=== PATIENT | female | born 2005 | race Two or more races ===

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

== ENCOUNTER 2024-09-14 19:07 | Inpatient (IN) | payer MEDICAID ==
[~2024-09-14] VITALS: Ht 165.1 cm; Wt 67.0 kg
[~2024-09-14 19:07] MED LIST changes: +IBU600T PO; +NAPR-746 PO; -NAPR500T31 PO
--- NOTE | 2024-09-14 19:36 | ED.PDOC ---
GI ASSESSMENT HPI Comments 19 y.o female presents to the ED for a chief complaint of abdominal pain associated with nausea and vomiting that started 4 days ago. Patient reports pain first presented all over her abdomen region but now is localized to the right side. Patient reports pain is constant, has taken Tylenol but has no relief. Patient has same symptoms one month ago but never sought medical attention due to pain subsiding on its own. No diarrhea, hematemesis, bloody stool, fever, chills or urinary symptoms reported. No medical history or allergies. Time Seen by MD: 19:28 Primary Care Provider: SHIN Reviewed Notes: Nurses Notes, Medications, Allergies Allergies: Coded Allergies: NO KNOWN ALLERGIES (Unverified , 07/03/22) Home Meds Active Scripts Ibuprofen Micronized (MOTRIN TABLET) 600 Mg Tb, 600 MG PO TID PRN for 7 Days, #21 TAB *Black box warning-NSAIDS can increase risk of IL & hypertension, GI irritation, ulceration, bleed, perferation. Do not use post cardiac surgery. Use short duration/lowest effective dose. Prov:NANCI FRANCIS MD 07/13/22 Naproxen (Naproxen) 500 Mg Tab, 500 MG PO BID, #20 TAB Prov:MATT WAGNER 07/03/22 Cephalexin ( Keflex 500) 500 Mg Cap, 1 CAP PO TID, #24 CAP Prov:MATT WAGNER 07/03/22 Information Source: Patient Mode of Arrival: Ambulatory Timing: Days (4) Duration: Since onset Quality: Sharp Vomitus: Hard Stool: Normal Severity: Moderate Recent: None Recent Hx of: None Pain Location: Diffuse, RUQ, RLQ Modifying Factors: Nothing Associated sign and symptoms: Nausea, Vomiting, Abdominal Pain Past Medical History PAST MEDICAL HISTORY: Denies Surgical History: Denies all surgeries PARKER History: No Pertinent PARKER History Family History Family History: Reviewed,noncontributory to illness Social History Smoker: Non-Smoker Alcohol: Denies ETOH Use Drugs: Denies Drug Use Lives In: Home Constitutional: denies: chills, diaphoresis, fatigue, fever, malaise, sweats, weakness, others EENTM: denies: blurred vision, double vision, ear bleeding, ear discharge, ear drainage, ear pain, ear ringing, eye pain, eye redness, hearing loss, mouth pain, mouth swelling, nasal discharge, nose bleeding, nose congestion, nose pain, photophobia, tearing, throat pain, throat swelling, voice changes, others Respiratory: denies: cough, hemoptysis, orthopnea, SOB at rest, shortness of breath, SOB with excertion, stridor, wheezing, others Cardiovascular: denies: chest pain, dizzy spells, diaphoresis, Dyspnea on exertion, edema, irregular heart beat, left arm pain, lightheadedness, palpitations, PND, syncope, others Gastrointestinal: reports: abdominal pain, nausea, vomiting; denies: abdomen distended, blood streaked bowels, constipated, diarrhea, dysphagia, difficulty swallowing, hematemesis, melena, poor appetite, poor fluid intake, rectal bleeding, rectal pain, others Genitourinary: denies: abnormal vagina bleeding, burning, dyspareunia, dysuria, flank pain, frequency, hematuria, incontinence, pain, , vagina discharge, urgency, others Neurological: denies: dizziness, fainting, headache, left sided numbness, left sided weakness, numbness, paresthesia, pre-existing deficit, right sided numbness, right sided weakness, seizure, speech problems, tingling, tremors, weakness, others Musculoskeletal: denies: back pain, gout, joint pain, joint swelling, muscle pain, muscle stiffness, neck pain, others Integumetry: denies: bruises, change in color, change in hair/nails, dryness, laceration, lesions, lumps, rash, wounds, others Allergic/Immunocompromised: denies: Difficulty Healing, Frequent Infections, Hives, Itching, others Hematologic/Lymphatic: denies: anemia, blood clots, easy bleeding, easy bruising, swollen glands, others Endocrine: denies: excessive hunger, excessive sweating, excessive thirst, excessive urination, flushing, intolerance to cold, intolerance to heat, unexplained weight gain, unexplained weight loss, others Psychiatric: denies: anxiety, bipolar disorder, depression, hopeless, panic disorder, schizophrenia, sleepless, suicidal, others All Other Systems: Reviewed and Negative Physical Exam General Appearance: Moderate Distress, Obese HEENT: Normal ENT Inspection, Pharynx Normal, TMs Normal Neck: Full Range of Motion, Non-Tender, Normal, Normal Inspection Respiratory: Chest Non-Tender, Lungs Clear, No Accessory Muscle Use, No Respiratory Distress, Normal Breath Sounds Cardiovascular: No Edema, No JVD, No Murmur, No Gallop, Normal Peripheral Pulses, Regular Rate/Rhythm Breast Exam: Deferred Gastrointestinal: No Organomegaly, No Pulsatile Mass, Normal Bowel Sounds, RLQ, RUQ, Soft, Tenderness Genitalia: Deferred Pelvic: Deferred Rectal: Deferred Extremities: No calf tenderness, Normal capillary refill, Normal inspection, Normal range of motion, Non-tender, No pedal edema Musculoskeletal : Apperance: Normal Neurologic: Alert, 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 Was a procedure done?: No GI differential Dx Differential Diagnosis: Cholangitis, Cholecystitis, Esophagitis, Gastroenteritis, Inflammatory BD, UTI, Dehydration, Electrolyte Imbalance, Food Poisoning, , Bacterial, Viral X-Ray, Labs, Meds, VS Vital Signs Date Time Temp Pulse Resp B/P (MAP) Pulse Ox O2 Delivery O2 Flow Rate FiO2 09/14/24 20:29 89 16 130/88 09/14/24 20:14 98.3 89 16 130/88 (102) 98 98.3 09/14/24 19:36 98.5 100 18 141/89 (106) 97 Lab Test 09/14/24 19:57 09/14/24 19:51 09/14/24 19:36 Range/Units Urine Color Light-yellow Yellow Urine Clarity Clear Clear Urine pH 6.0 5.0-9.0 Urine Specific [place] 1.026 1.001-1.035 Urine Protein Negative Negative Urine Ketones 1+ H Negative Urine Blood 1+ H Negative /uL Urine Nitrite Negative Negative Urine Bilirubin Negative Negative Urine Urobilinogen Normal Negative mg/dL Urine Leukocyte Esterase Negative Negative /uL Urine RBC 26 0 - 4 /hpf Urine WBC 2 0 - 5 /hpf Urine Squamous Epithelial Cells Few <5 /hpf Urine Bacteria Few H None Seen /hpf Urine Mucus Few None Seen Urine Glucose Normal Normal mg/dL White Blood Count 15.7 H 4.4-10.8 10^3/uL Red Blood Count 4.67 4.0-5.20 10^6/uL Hemoglobin 14.3 12.2-16.2 g/dL Hematocrit 41.0 36.0-46.0 % Mean Corpuscular Volume 87.8 80.0-100.0 fL Mean Corpuscular Hemoglobin 30.6 28.0-32.0 pg Mean Corpuscular Hemoglobin Concent 34.9 32.0-36.0 g/dL Red Cell Distribution Width 13.0 11.8-14.3 % Platelet Count 448 140-450 10^3/uL Mean Platelet Volume 6.6 L 6.9-10.8 fL Neutrophils (%) (Auto) 81.5 H 37.0-80.0 % Lymphocytes (%) (Auto) 9.4 L 10.0-50.0 % Monocytes (%) (Auto) 7.7 0.0-12.0 % Eosinophils (%) (Auto) 1.0 0.0-7.0 % Basophils (%) (Auto) 0.4 0.0-2.0 % Neutrophils # (Auto) 12.8 H 1.6-8.6 10 ^3/uL Lymphocytes # (Auto) 1.5 0.4-5.4 10 ^3/uL Monocytes # (Auto) 1.2 0-1.3 10 ^3/uL Eosinophils # (Auto) 0.2 0-0.8 10 ^3/uL Basophils # (Auto) 0.1 0-0.2 10 ^3/uL Nucleated Red Blood Cells 0.0 % Sodium Level 140 136-145 mmol/L Potassium Level 3.4 L 3.5-5.1 mmol/L Chloride Level 108 H 98-107 mmol/L Carbon Dioxide Level 24 20-31 mmol/L Anion Gap 8 5-15 Blood Urea Nitrogen 8 L 9-23 mg/dL Creatinine 0.97 0.550-1.02 mg/dL Glomerular Filtration Rate Calc 86 >90 mL/min BUN/Creatinine Ratio 8.2 L 10.0-20.0 Serum Glucose 104 74-106 mg/dL Calcium Level 9.9 8.7-10.4 mg/dL Total Bilirubin 0.7 0.2-1.0 mg/dL Aspartate Amino Transferase (AST) 15 13-40 U/L Alanine Aminotransferase (ALT) 19 7-40 U/L Alkaline Phosphatase 85 46-116 U/L Total Protein 7.5 5.7-8.2 g/dL Albumin 4.8 3.2-4.8 g/dL Lipase 40 12-53 U/L POC Glucose 95 70-106 mg/dl Current Medications Medications (Trade) Dose Ordered Sig/Rodrigo Route Start Time Stop Time Status Last Admin Morphine Sulfate 4 mg ONCE ONCE IV 09/14/24 19:45 09/14/24 19:46 DC 09/14/24 20:29 Pantoprazole Sodium (Protonix) 40 mg ONCE ONCE IV 09/14/24 19:45 09/14/24 19:46 DC 09/14/24 20:28 Ondansetron HCl (Zofran) 4 mg ONCE ONCE IV 09/14/24 19:45 09/14/24 19:46 DC 09/14/24 20:28 The patient's CBC shows an elevated white blood cell count of 15.7 The rest of the CBC is within normal limits The chemistry panel is within normal limits The patient was given Protonix 40 mg IV push The patient was given morphine 4 mg IV push for the pain The patient was given Zofran 4 mg IV push for the nausea The ultrasound of the gallbladder is negative We did go ahead and get a CT scan of the abdomen and pelvis because of the persistent pain in the elevated white count The patient was being admitted at this time. Images Reviewed?: Images reviewed and evaluated by me Time of 1ST Reevaluation: 19:33 Reevaluation 1ST: Unchanged Patient Education/Counseling: Diagnosis, Treatment, Prognosis Family Education/Counseling: No Family Present Departure 1 Departure Time of Disposition: 20:51 Impression: Primary Impression: Intractable abdominal pain Additional Impression: Leukocytosis Qualified Codes: D72.829 - Elevated white blood cell count, unspecified Disposition: ADMITTED INPATIENT Admit to: Med Surg Condition: Fair Critical Care Note Critical Care Time?: No Stability Stability form required: Yes Unstable for transfer: ED Physician Assesment (Clinical assesment) I personally scribed for BIBI PARK MD ([email or web address]) on 09/14/24 at 19:36. Electronically submitted by Dominique Pollack ([facility]). BIBI PARK MD Sep 14, 2024 19:36
[2024-09-14 20:01] LABS: Basophils # (auto) 0.1 10 ^3/uL (0-0.2); Basophils % (auto) 0.4 % (0.0-2.0); Eosinophils # (auto) 0.2 10 ^3/uL (0-0.8); Hemoglobin 14.3 g/dL (12.2-16.2); Lymphocytes # (auto) 1.5 10 ^3/uL (0.4-5.4); Lymphocytes % (auto) 9.4 % (10.0-50.0); Mean Corpuscular Hemoglobin 30.6 pg (28.0-32.0); Mean Corpuscular Hgb Conc. 34.9 g/dL (32.0-36.0); Mean Corpuscular Volume 87.8 fL (80.0-100.0); Monocytes # (auto) 1.2 10 ^3/uL (0-1.3); Monocytes % (auto) 7.7 % (0.0-12.0); Neutrophils # (auto) 12.8 10 ^3/uL (1.6-8.6); Neutrophils % (auto) 81.5 % (37.0-80.0); Platelet Count (auto) 448 10^3/uL (140-450); Red Blood Cells 4.67 10^6/uL (4.0-5.20); White Blood Cell 15.7 10^3/uL (4.4-10.8)
[2024-09-14 20:03] LABS: Urine Bacteria FEW /hpf (None Seen); Urine Blood 1+ /uL (Negative); Urine Clarity Clear (Clear); Urine Color Light-Yellow (Yellow); Urine Mucus FEW (None Seen); Urine Protein, UAD Negative (Negative); Urine Specific Gravity 1.026 (1.001-1.035); Urine Urobilinogen Normal (Negative); Urine WBC 2 /hpf (0 - 5)
[2024-09-14 20:19] LABS: Alanine Aminotransferase 19 U/L (7-40); Albumin 4.8 g/dL (3.2-4.8); Alkaline Phosphatase 85 U/L (46-116); Anion Gap 8 (5-15); Aspartate Aminotransferase 15 U/L (13-40); BUN/Creatinine Ratio 8.2 (10.0-20.0); Blood Urea Nitrogen 8 mg/dL (9-23); Calcium 9.9 mg/dL (8.7-10.4); Carbon Dioxide 24 mmol/L (20-31); Chloride 108 mmol/L (98-107); Glucose 104 mg/dL (74-106); Lipase 40 U/L (12-53); Potassium 3.4 mmol/L (3.5-5.1); Sodium 140 mmol/L (136-145)
[2024-09-14 20:20] LABS: Bilirubin, Total 0.7 mg/dL (0.2-1.0); Total Protein 7.5 g/dL (5.7-8.2)
--- NOTE | 2024-09-14 20:24 | DVH ---
INDICATION: Pain. TECHNIQUE: Multiple real-time sonographic images of the abdomen were obtained. COMPARISON: None FINDINGS: The liver is homogenous in echogenicity. The liver measures 15.06 cm. No intrahepatic bili mercedes ductal dilatation is noted. The gallbladder wall measures 0.34 cm and is minimally thickened.. No gallstones or sludge is seen. The common duct measures 0.2 cm and is unremarkable. No pericholecystic fluid is noted. The right kidney measures 10.69 cm. Mild hydronephrosis. The left kidney measures 10.46 cm. No hydr onephrosis. The pancreas is normal. IMPRESSION: 1. No cholelithiasis. Negative ultrasound camejo's sign is elicited. 2. Mild right hydronephrosis.
[2024-09-14] MEDS: PANTOPRAZOLE 40 MG/10 ML VIAL INJ IV ONE (20:28)
[2024-09-14] MEDS: ONDANSETRON HCL 4 MG/2 ML VIAL IV ONE (20:28)
[2024-09-14] MEDS: MORPHINE SULFATE 4 MG/ML SYR/VIAL IV ONE (20:29)
--- NOTE | 2024-09-14 21:13 | DVH ---
Exam: CT CT AB PEL WO CON-NO ORAL OR IV History: pain Comparison Study: None available at time of dictation. TECHNIQUE: Multidetector CT of the abdomen was performed from lung bases to pubic symphysis. Imaging was performed without IV contrast. Axial, coronal and sagittal multiplanar reformats were obtained fr om the axial data set by the technologist. Radiation Dose Information: CT Dose: CTDI volume is 5.38 mGy. Dose-length product is 315.41 mGy*cm FINDINGS: Evaluation of solid organs is limited due to lack of intravenous contrast use. Findings: Lung Bases: No acute or significant lung base finding. Normal heart size. No pleural or pericardial effusion. Liver: The liver is normal in size. No focal lesions. Gallbladder and Biliary Tree: Unremarkable Spleen: Unremarkable Pancreas: The pancreas is grossly normal in appearance. Adrenal Glands: Unremarkable Kidneys: Punctate nonobstructing calculus left kidney. Mild right hydronephrosis hydroureter there is a 5-6 mm calculus in the distal right ureter. Bladder: Grossly unremarkable for degree of distention. Bowel: The stomach is grossly normal in appearance. Small bowel and colon are normal in caliber and d istribution. The appendix is not visualized; however, no secondary findings of acute appendicitis id entified. Ascites: Absent Lymphadenopathy: No mesenteric, retroperitoneal or periportal lymphadenopathy. Abdominal Wall and Mesentery: Unremarkable. Vasculature: The visualized abdominal aorta is normal in size and caliber. Evaluation of abdominal a nd pelvic vessels is limited due to lack of intravenous contrast. Pelvic Organs: There is a 3.1 cm hypodense mass in the right adnexa most likely the right ovary. Musculoskeletal: No aggressive focal bony lesions, acute fractures or dislocation. Soft tissues: Unremarkable IMPRESSION: 1. Mild right hydronephrosis and hydroureter to a 5-6 mm distal right ureteral calculus near the righ t ureterovesical junction. 2. Punctate nonobstructing calculus left kidney. 3. 3.1 hypodense mass in the right adnexa most likely the right ovary. Radiation optimization: All CT scans at this facility use at least one of these dose optimization kandy hniques: automated exposure control mA and/or kV adjustment per patient size (includes targeted exam s where dose is matched to clinical indication) or iterative reconstruction.
[2024-09-14] MEDS ORDERED: NITROGLYCERIN 0.4 MG SL TAB SL PRN (21:15)
[2024-09-14] MEDS ORDERED: MORPHINE SULFATE INJ 2 MG/ml SYRG IV PRN (21:15)
--- NOTE | 2024-09-14 21:57 | DVHHPRES ---
History of Present Illness Resident Creating Document: VISHNU PUENTE RESIDENT History of Present Illness This is a 19 yrs old female with no significant past medical history presented to the ED for a chief complaint of abdominal pain associated with nausea and vomiting for 4 days prior to this admission. According to the patient she first felt pain in both ribcage and later it was confined to the right lower abdomen which is colicky in nature, constant 10/10 and associated with nausea and vomiting and without any aggravating factors and not relieved by taking Tylenol. She also mentioned has same symptoms 1 month ago but never sought any medical attention due to pain subsiding by its own. She denies fever, chest pain, dizziness, chills, malaise, dysuria, blood in urine or any changes in the bowel movement. Past Medical History None Past Surgical History None Family History: None Smoke: No ALCOHOL: occassional Drugs: None Lives: with Family Review of Systems Constitutional: No: Fever, Chills, Sweats, Weakness, Malaise, Other Eyes: No: Pain, Vision change, Conjunctivae inflammation, Eyelid inflammation, Other, Redness ENT: No: Ear pain, Ear discharge, Nose pain, Nose discharge, Nose congestion, Mouth pain, Mouth swelling, Throat pain, Throat swelling, Other Respiratory: No: Cough, Dry, Shortness of breath, SOB with excertion, Wheezing, Hemoptysis, Pleuritic Pain, Sputum, Wheezing, Other Cardiovascular: No: Chest Pain, Palpitations, Orthopnea, Paroxysmal Noc. Dyspnea, Edema, Lt Headedness, Other Gastrointestinal: Nausea, Vomiting, Abdominal Pain; No: Diarrhea, Constipation, Melena, Hematochezia, Other Genitourinary: No Dysuria, No Frequency, No Incontinence, No Hematuria, No Retention, No Other Musculoskeletal: No: other, neck pain, shoulder pain, arm pain, back pain, hand pain, leg pain, foot pain Skin: No: Rash, Lesions, Jaundice, Bruising, Other Neurological: No: Weakness, Numbness, Incoordination, Change in speech, Confusion, Seizures, Other Allergies: Coded Allergies: NO KNOWN ALLERGIES (Unverified , 07/03/22) Medications Current Medications Medications Dose Ordered Sig/Rodrigo Route Start Time Stop Time Status Last Admin Dose Admin Sodium Chloride 10 ml Q8HR IV 09/14/24 22:00 Sodium Chloride 1,000 ml @ 75 mls/hr [id number] IV 09/14/24 21:15 Acetaminophen/ Hydrocodone Bitart 1 tab Q4HP PRN PO 09/14/24 21:15 Ondansetron HCl 4 mg Q4HP PRN IV 09/14/24 21:15 Morphine Sulfate 2 mg Q4HPRN PRN IV 09/14/24 21:15 Nitroglycerin 0.4 mg Q5MINP PRN SL 09/14/24 21:15 Morphine Sulfate 2 mg Q30M PRN IV 09/14/24 21:15 Exam Vital Signs Vital Signs Date Time Temp Pulse Resp B/P (MAP) Pulse Ox O2 Delivery O2 Flow Rate FiO2 09/14/24 20:29 89 16 130/88 09/14/24 20:14 98.3 98 98.3 Exam Physical examination: General Appearance: Alert, Oriented X3, Cooperative, No acute distress HEENT: Atraumatic, PERRLA, EOMI, Mucous membrane moist/pink Respiratory: Clear to auscultation, Normal air movement Cardiovascular: Regular rate, Normal S1, Normal S2, No murmurs, no chest wall tenderness Abdominal: Normal bowel sounds, Soft, No tenderness, No hepatospenomegaly, No masses Extremities: No clubbing, No cyanosis, No edema, Normal pulses, No tende rness/swelling Skin: No rashes, No breakdown, No significant lesion Neuro: Normal gait, Normal speech, Strength at 5/5 X4 ext, Normal tone, Sensation intact, grossly intact cranial nerves. Psych/Mental Status: Mental status NL, Mood NL Labs/Xrays Labs Test 09/14/24 19:57 09/14/24 19:51 09/14/24 19:36 Range/Units Urine Color Light-yellow Yellow Urine Clarity Clear Clear Urine pH 6.0 5.0-9.0 Urine Specific [place] 1.026 1.001-1.035 Urine Protein Negative Negative Urine Ketones 1+ H Negative Urine Blood 1+ H Negative /uL Urine Nitrite Negative Negative Urine Bilirubin Negative Negative Urine Urobilinogen Normal Negative mg/dL Urine Leukocyte Esterase Negative Negative /uL Urine RBC 26 0 - 4 /hpf Urine WBC 2 0 - 5 /hpf Urine Squamous Epithelial Cells Few <5 /hpf Urine Bacteria Few H None Seen /hpf Urine Mucus Few None Seen Urine Glucose Normal Normal mg/dL White Blood Count 15.7 H 4.4-10.8 10^3/uL Red Blood Count 4.67 4.0-5.20 10^6/uL Hemoglobin 14.3 12.2-16.2 g/dL Hematocrit 41.0 36.0-46.0 % Mean Corpuscular Volume 87.8 80.0-100.0 fL Mean Corpuscular Hemoglobin 30.6 28.0-32.0 pg Mean Corpuscular Hemoglobin Concent 34.9 32.0-36.0 g/dL Red Cell Distribution Width 13.0 11.8-14.3 % Platelet Count 448 140-450 10^3/uL Mean Platelet Volume 6.6 L 6.9-10.8 fL Neutrophils (%) (Auto) 81.5 H 37.0-80.0 % Lymphocytes (%) (Auto) 9.4 L 10.0-50.0 % Monocytes (%) (Auto) 7.7 0.0-12.0 % Eosinophils (%) (Auto) 1.0 0.0-7.0 % Basophils (%) (Auto) 0.4 0.0-2.0 % Neutrophils # (Auto) 12.8 H 1.6-8.6 10 ^3/uL Lymphocytes # (Auto) 1.5 0.4-5.4 10 ^3/uL Monocytes # (Auto) 1.2 0-1.3 10 ^3/uL Eosinophils # (Auto) 0.2 0-0.8 10 ^3/uL Basophils # (Auto) 0.1 0-0.2 10 ^3/uL Nucleated Red Blood Cells 0.0 % Sodium Level 140 136-145 mmol/L Potassium Level 3.4 L 3.5-5.1 mmol/L Chloride Level 108 H 98-107 mmol/L Carbon Dioxide Level 24 20-31 mmol/L Anion Gap 8 5-15 Blood Urea Nitrogen 8 L 9-23 mg/dL Creatinine 0.97 0.550-1.02 mg/dL Glomerular Filtration Rate Calc 86 >90 mL/min BUN/Creatinine Ratio 8.2 L 10.0-20.0 Serum Glucose 104 74-106 mg/dL Calcium Level 9.9 8.7-10.4 mg/dL Total Bilirubin 0.7 0.2-1.0 mg/dL Aspartate Amino Transferase (AST) 15 13-40 U/L Alanine Aminotransferase (ALT) 19 7-40 U/L Alkaline Phosphatase 85 46-116 U/L Total Protein 7.5 5.7-8.2 g/dL Albumin 4.8 3.2-4.8 g/dL Lipase 40 12-53 U/L POC Glucose 95 70-106 mg/dl Assessment/Plan Assessment/Plan Assessment and plan: # Right flank pain, rule out renal stone - Patient is NPO - IV normal saline at 75 mL/hour - IV morphine 2 mg q.4 p.r.n. - IV ceftriaxone 1 g once - Elevated WBC count with left shift - UA is positive for hematuria and bacteriuria - CT abdomen pelvis revealed mild right hydronephrosis and hydroureter to a 5-6 mm distal right ureteral calculus near the right ureterovesical junction and Punctate nonobstructing calculus left kidney. - Consulted Urology # Hypokalemia - Replenished. Goal of care discussed with the patient for more than 17 minutes full code Plan of treatment discussed with Dr. Chapman Plan discussed with: Patient, Other My Orders Orders - VISHNU PUENTE RESIDENT Procedure Category Date Status Time Admit ADMIT 09/14/24 Transmitted 21:10 Allergies PEREZ 09/14/24 In Process 21:10 Code Status CODE 09/14/24 Transmitted 21:10 Sodium Chloride Lock PHA 09/14/24 In Process (Saline Lock Ns) 22:00 Sodium Chloride 0.9% PHA 09/14/24 In Process 21:15 Oxygen Per Hour RT 09/14/24 Transmitted 21:10 Hydrocodone-Acet PHA 09/14/24 In Process 5/325mg Tab ([place] 21:15 Ondansetron Hcl PHA 09/14/24 In Process (Zofran) 21:15 Complete Blood Count LAB 09/15/24 Verified 04:00 Comprehensive LAB 09/15/24 Verified Metabolic Panel 04:00 Npo (Nothing By DIET 09/15/24 Transmitted Mouth) Diet Breakfast Morphine Sulfate PHA 09/14/24 In Process Injection 21:15 Nitroglycerin PHA 09/14/24 In Process Sublingual (Ntrostat 21:15 Morphine Sulfate PHA 09/14/24 In Process Injection 21:15 Oxygen By Nasal RT 09/14/24 Transmitted Cannula 21:10 Stat Ekg For Chest PEREZ 09/14/24 In Process Pain 21:10 Notify Of Changes PEREZ 09/14/24 In Process From Base 21:10 Staining Machine Operator For [facility] 09/14/24 In Process 24 Hours 21:10 Emergency Dysrhythmia [facility] 09/14/24 In Process Protocol 21:10 Rhythm Strips Once [facility] 09/14/24 In Process Every Shift 21:10 Date of Service: Sep 14, 2024 Billing Provider: ÁLVARO CHAPMAN MD Common Visit Codes: [id number] INP/OBS CARE (HIGH) VISHNU PUENTE RESIDENT Sep 14, 2024 21:57 ÁLVARO CHAPMAN MD Sep 15, 2024 12:53
[2024-09-14] MEDS: POTASSIUM EFFERVESENT TAB 25 MEQ PO ONE (22:12)
[2024-09-14] MEDS: SODIUM CHLORIDE 0.9% 1,000 ML IV SCH (22:14)
[2024-09-14] MEDS: SODIUM CHLOR 0.9% PF (SALINE LOCK) 10ML VIAL/SYR IV SCH (22:20)
[2024-09-14] MEDS: HYDROcodone-ACET 5/325MG TAB PO PRN (23:30)
[2024-09-14 23:37] VITALS: PULSE 87; RESP 18; O2SAT 98
[2024-09-15] MEDS: cefTRIAXone 1GM/50ML D5W 50 ML IV ONE (00:52)
[2024-09-15 06:13] LABS: Basophils # (auto) 0 10 ^3/uL (0-0.2); Basophils % (auto) 0.4 % (0.0-2.0); Eosinophils # (auto) 0.2 10 ^3/uL (0-0.8); Eosinophils % (auto) 1.3 % (0.0-7.0); Hematocrit 35.6 % (36.0-46.0); Hemoglobin 12.7 g/dL (12.2-16.2); Lymphocytes # (auto) 1.4 10 ^3/uL (0.4-5.4); Lymphocytes % (auto) 12.2 % (10.0-50.0); Mean Corpuscular Hemoglobin 31.4 pg (28.0-32.0); Mean Corpuscular Hgb Conc. 35.6 g/dL (32.0-36.0); Mean Corpuscular Volume 88.4 fL (80.0-100.0); Monocytes # (auto) 1.3 10 ^3/uL (0-1.3); Monocytes % (auto) 11.6 % (0.0-12.0); Neutrophils # (auto) 8.6 10 ^3/uL (1.6-8.6); Neutrophils % (auto) 74.5 % (37.0-80.0); Platelet Count (auto) 388 10^3/uL (140-450); Red Blood Cells 4.03 10^6/uL (4.0-5.20); White Blood Cell 11.6 10^3/uL (4.4-10.8)
[2024-09-15 06:23] LABS: Alanine Aminotransferase 16 U/L (7-40); Alkaline Phosphatase 72 U/L (46-116); Anion Gap 9 (5-15); Aspartate Aminotransferase 11 U/L (13-40); BUN/Creatinine Ratio 7.4 (10.0-20.0); Blood Urea Nitrogen 7 mg/dL (9-23); Calcium 9.3 mg/dL (8.7-10.4); Carbon Dioxide 22 mmol/L (20-31); Chloride 108 mmol/L (98-107); Glucose 96 mg/dL (74-106); Potassium 3.9 mmol/L (3.5-5.1); Sodium 139 mmol/L (136-145)
[2024-09-15 06:24] LABS: Total Protein 6.5 g/dL (5.7-8.2)
[2024-09-15 07:42] VITALS: PULSE 68; RESP 18; O2SAT 96
--- NOTE | 2024-09-15 08:29 | DVHINCON2 ---
Date of service: Sep 15, 2024 Referring Physician hospitalist Reason for Consultation kidney stones History of Present Illness History Source: Patient, RN Notes, MD Notes Exam Limitations: No limitations HPI 19 y.o female presents to the ED for a chief complaint of abdominal pain associated with nausea and vomiting that started 4 days ago. Patient reports pain first presented all over her abdomen region but now is localized to the right side. Patient reports pain is constant, has taken Tylenol but has no relief. Patient has same symptoms one month ago but never sought medical attention due to pain subsiding on its own. No diarrhea, hematemesis, bloody stool, fever, chills or urinary symptoms reported. No medical history or allergies. Home Meds Active Scripts Ibuprofen Micronized (MOTRIN TABLET) 600 Mg Tb, 600 MG PO TID PRN for 7 Days, #21 TAB *Black box warning-NSAIDS can increase risk of CT & hypertension, GI irritation, ulceration, bleed, perferation. Do not use post cardiac surgery. Use short duration/lowest effective dose. Prov:NANCI FRANCIS MD 07/13/22 Naproxen (Naproxen) 500 Mg Tab, 500 MG PO BID, #20 TAB Prov:MATT WAGNER 07/03/22 Cephalexin ( Keflex 500) 500 Mg Cap, 1 CAP PO TID, #24 CAP Prov:MATT WAGNER 07/03/22 Review of Systems Genitourinary: Pain H&P Exam Vital Signs Vital Signs Date Time Temp Pulse Resp B/P (MAP) Pulse Ox O2 Delivery O2 Flow Rate FiO2 09/15/24 07:42 98.5 68 18 109/74 (86) 96 98.5 09/15/24 07:42 Room Air* 0 21 General Appeara: Well developed, Well nourished, Normal Appearance Neuro/Mental St: Alert, Oriented Appearance: Appropriate appearance, Appropriate insight Eye contact/ Speech: Cooperative, Good eye contact, Normal speech Skin Exam: Normal inspection, Normal color, Warm/dry Labs/Xrays [facility] [id number] [place] [id number] Ph: [phone] DIAGNOSTIC IMAGING Diagnostic Imaging Report : [id number] Signed PATIENT: KUSHAL TREJO ACCT: [id number] UNIT: [id number] : 2005 LOC: ER ROOM / BED: / AGE / SEX: 19 / F ADM STATUS: REG ER SERVICE 38 ORDERING PHYSICIAN: BIBI PARK MD PROCEDURE(s): ABPL - CT AB PEL WO CON-NO ORAL OR IV REASON: pain ORDER NUMBER(s): [id number], ACCESSION NUMBER(s): [id number] Exam: CT CT AB PEL WO CON-NO ORAL OR IV History: pain Comparison Study: None available at time of dictation. TECHNIQUE: Multidetector CT of the abdomen was performed from lung bases to pubic symphysis. Imaging was performed without IV contrast. Axial, coronal and sagittal multiplanar reformats were obtained from the axial data set by the technologist. Radiation Dose Information: CT Dose: CTDI volume is 5.38 mGy. Dose-length product is 315.41 mGy*cm FINDINGS: Evaluation of solid organs is limited due to lack of intravenous contrast use. Findings: Lung Bases: No acute or significant lung base finding. Normal heart size. No pleural or pericardial effusion. Liver: The liver is normal in size. No focal lesions. Gallbladder and Biliary Tree: Unremarkable Spleen: Unremarkable Pancreas: The pancreas is grossly normal in appearance. Adrenal Glands: Unremarkable Kidneys: Punctate nonobstructing calculus left kidney. Mild right hydronephrosis hydroureter there is a 5-6 mm calculus in the distal right ureter. Bladder: Grossly unremarkable for degree of distention. Bowel: The stomach is grossly normal in appearance. Small bowel and colon are normal in caliber and distribution. The appendix is not visualized; however, no secondary findings of acute appendicitis identified. Ascites: Absent Lymphadenopathy: No mesenteric, retroperitoneal or periportal lymphadenopathy. Abdominal Wall and Mesentery: Unremarkable. Vasculature: The visualized abdominal aorta is normal in size and caliber. Evaluation of abdominal and pelvic vessels is limited due to lack of intravenous contrast. Pelvic Organs: There is a 3.1 cm hypodense mass in the right adnexa most likely the right ovary. Musculoskeletal: No aggressive focal bony lesions, acute fractures or dislocation. Soft tissues: Unremarkable IMPRESSION: 1. Mild right hydronephrosis and hydroureter to a 5-6 mm distal right ureteral calculus near the right ureterovesical junction. 2. Punctate nonobstructing calculus left kidney. 3. 3.1 hypodense mass in the right adnexa most likely the right ovary. Radiation optimization: All CT scans at this facility use at least one of these dose optimization techniques: automated exposure control mA and/or kV adjustment per patient size (includes targeted exams where dose is matched to clinical indication) or iterative reconstruction. ATED BY: INESSA MEMBRENO Jr. DO DICTATED DATE/TIME: 09/14/242109 Labs Test 09/15/24 05:24 09/14/24 19:57 09/14/24 19:51 09/14/24 19:36 Range/Units White Blood Count 11.6 #H 4.4-10.8 10^3/uL Red Blood Count 4.03 4.0-5.20 10^6/uL Hemoglobin 12.7 12.2-16.2 g/dL Hematocrit 35.6 #L 36.0-46.0 % Mean Corpuscular Volume 88.4 80.0-100.0 fL Mean Corpuscular Hemoglobin 31.4 28.0-32.0 pg Mean Corpuscular Hemoglobin Concent 35.6 32.0-36.0 g/dL Red Cell Distribution Width 13.0 11.8-14.3 % Platelet Count 388 140-450 10^3/uL Mean Platelet Volume 6.8 L 6.9-10.8 fL Neutrophils (%) (Auto) 74.5 37.0-80.0 % Lymphocytes (%) (Auto) 12.2 10.0-50.0 % Monocytes (%) (Auto) 11.6 0.0-12.0 % Eosinophils (%) (Auto) 1.3 0.0-7.0 % Basophils (%) (Auto) 0.4 0.0-2.0 % Neutrophils # (Auto) 8.6 1.6-8.6 10 ^3/uL Lymphocytes # (Auto) 1.4 0.4-5.4 10 ^3/uL Monocytes # (Auto) 1.3 0-1.3 10 ^3/uL Eosinophils # (Auto) 0.2 0-0.8 10 ^3/uL Basophils # (Auto) 0 0-0.2 10 ^3/uL Nucleated Red Blood Cells 0.0 % Sodium Level 139 136-145 mmol/L Potassium Level 3.9 3.5-5.1 mmol/L Chloride Level 108 H 98-107 mmol/L Carbon Dioxide Level 22 20-31 mmol/L Anion Gap 9 5-15 Blood Urea Nitrogen 7 L 9-23 mg/dL Creatinine 0.94 0.550-1.02 mg/dL Glomerular Filtration Rate Calc 89 >90 mL/min BUN/Creatinine Ratio 7.4 L 10.0-20.0 Serum Glucose 96 74-106 mg/dL Calcium Level 9.3 8.7-10.4 mg/dL Total Bilirubin 1.0 0.2-1.0 mg/dL Aspartate Amino Transferase (AST) 11 L 13-40 U/L Alanine Aminotransferase (ALT) 16 7-40 U/L Alkaline Phosphatase 72 46-116 U/L Total Protein 6.5 5.7-8.2 g/dL Albumin 4.0 3.2-4.8 g/dL Urine Color Light-yellow Yellow Urine Clarity Clear Clear Urine pH 6.0 5.0-9.0 Urine Specific [place] 1.026 1.001-1.035 Urine Protein Negative Negative Urine Ketones 1+ H Negative Urine Blood 1+ H Negative /uL Urine Nitrite Negative Negative Urine Bilirubin Negative Negative Urine Urobilinogen Normal Negative mg/dL Urine Leukocyte Esterase Negative Negative /uL Urine RBC 26 0 - 4 /hpf Urine WBC 2 0 - 5 /hpf Urine Squamous Epithelial Cells Few <5 /hpf Urine Bacteria Few H None Seen /hpf Urine Mucus Few None Seen Urine Glucose Normal Normal mg/dL Lipase 40 12-53 U/L POC Glucose 95 70-106 mg/dl Assessment/Plan Problem List: (1) Hydronephrosis with renal and ureteral calculous obstruction Plan expulsive measures pain control outpt f/u Plan discussed with: Patient, Other SRINI NAVAS NP Sep 15, 2024 08:29
[2024-09-15] MEDS ORDERED: cefTRIAXone 1GM/50ML D5W 50 ML IV SCH (09:00)
[2024-09-15] MEDS: MORPHINE SULFATE INJ 2 MG/ml SYRG IV PRN (09:47)
[2024-09-15] MEDS: ONDANSETRON HCL 4 MG/2 ML VIAL IV PRN (09:54)
[2024-09-15 13:37] VITALS: BP 106/72; PULSE 81; RESP 16; TEMP 98.4; O2SAT 97
[2024-09-15 14:48] VITALS: BP 106/72; PULSE 81; RESP 16; TEMP 98.4; O2SAT 97
[2024-09-15 15:20] VITALS: PULSE 81; RESP 16; O2SAT 97
--- NOTE | 2024-09-15 15:31 | DVHPNRES ---
Progress Note Date Seen: Sep 15, 2024 Resident Creating Document: HAYDEN KONG RESIDENT Has the PT tested + for MRSA If YES, has PT been informed?: No Medical Necessity Reason Pt with a Central, PICC or Fol: No Subjective Review of Systems This is a 19 yrs old female with no significant past medical history presented to the ED for a chief complaint of abdominal pain associated with nausea and vomiting for 4 days prior to this admission. According to the patient she first felt pain in both ribcage and later it was confined to the right lower abdomen which is colicky in nature, constant 10/10 and associated with nausea and vomiting and without any aggravating factors and not relieved by taking Tylenol. She also mentioned has same symptoms 1 month ago but never sought any medical attention due to pain subsiding by its own. She denies fever, chest pain, dizziness, chills, malaise, dysuria, blood in urine or any changes in the bowel movement. Initial labs were showing leukocytosis at 11.6 rest of labs were grossly unremarkable. Lipase was 40, urinalysis came back negative for UTI. Initial gallbladder ultrasound showed no evidence of cholelithiasis or cholecystitis at that time. It showed mild right hydronephrosis. CT of the abdomen showed mild right hydronephrosis and hydroureter due to 5-6 mm distal right ureteral calculus near the right ureterovesical junction. There is also a punctuated nonobstructing calculus in the left kidney. There was also a 3.1 hypodense mass in the right adnexa likely in the right ovary which could be due to a simple cyst. The patient was started on IV fluids at 75 cc/hour, tamsulosin 0.4 mg q.d. and IV ceftriaxone. Patient is also receiving pain medication for pain modulation. Patient was admitted for further assessment and management. Patient seen and examined at bedside. Patient is reporting a right lower quadrant abdominal tenderness and slightly in the right flank. The patient denies dysuria, urgency, urgency or any other urinary complaint. The patient denies blood in the urine. Urology team was consulted for right hydronephrosis. We will strain urine for stones and continue IV fluids and tamsulosin and closely monitor for stone passage. We will continue current medical management at this point. ROS Constitutional: Denies weight loss, fever and chills. HEENT: Denies changes in vision and hearing. Respiratory: Denies shortness of breath and cough Cardiovascular: Denies chest discomfort or palpitations GI: Reports right lower quadrant abdominal pain and right flank pain. Denies nausea, vomiting or diarrhea. : Denies dysuria and urinary frequency. Musculoskeletal: Denies myalgias and joint pain Skin: Denies rash and pruritus. Neurological: Denies dizziness, headache, vision or hearing problems Objective vital signs Vital Sign Date Time Temp Pulse Resp B/P (MAP) Pulse Ox O2 Delivery O2 Flow Rate FiO2 09/15/24 13:37 98.4 81 16 106/72 (83) 97 98.4 09/15/24 07:42 Room Air* 0 21 medications Current Medications Medications Dose Ordered Sig/Rodrigo Route Start Time Stop Time Status Last Admin Dose Admin Sodium Chloride 10 ml Q8HR IV 09/14/24 22:00 09/15/24 14:06 10 ML Sodium Chloride 1,000 ml @ 75 mls/hr [id number] IV 09/14/24 21:15 09/15/24 10:35 75 MLS/HR Acetaminophen/ Hydrocodone Bitart 1 tab Q4HP PRN PO 09/14/24 21:15 09/14/24 23:30 1 TAB Ondansetron HCl 4 mg Q4HP PRN IV 09/14/24 21:15 09/15/24 09:54 4 MG Morphine Sulfate 2 mg Q4HPRN PRN IV 09/14/24 21:15 09/15/24 09:47 2 MG Nitroglycerin 0.4 mg Q5MINP PRN SL 09/14/24 21:15 Morphine Sulfate 2 mg Q30M PRN IV 09/14/24 21:15 Tamsulosin HCl 0.4 mg QPM PO 09/15/24 18:00 Ceftriaxone Sodium 50 ml @ 100 mls/hr DAILY@0100 IV 09/16/24 01:00 Examination Physical Examination General: Patient alert and oriented in person, place and time. Patient following commands. HEENT: Normocephalic, atraumatic, moist mucous membranes Respiratory/pulmonary: Clear lungs bilaterally, no associated crackles or wheezes. Cardiovascular: Normal regular heart sounds S1 and S2 with no associated murmurs Abdomen: Abdomen nondistended, there is pain to palpation at the right lower quadrant and flank. no palpable masses. Extremities: There is no peripheral edema present at the lower extremities. Peripheral Pulses: 3+ Radial (R). 3+ Radial (L). 3+ Dorsalis pedis (R). 3+ Dorsalis pedis(L) Skin: No rashes or pruritus, there is no sacral edema present at this time. Neurological: Intact cranial nerves with no focal neurologic deficits laboratory and microbiology Laboratory Tests 09/15/24 05:24 Test 09/15/24 05:24 Range/Units Serum Glucose 96 74-106 mg/dL Problem List/Assessment/Plan Problem List/Assessment/Plan Assessment/Plan Acute right lower quadrant abdominal pain likely due to nephrolithiasis -initial WBC was elevated at 11.6 -CT scan of the abdomen showed mild right hydronephrosis and hydroureter due to a 5-6 mm distal right ureteral calculus near the right ureterovesical junction -continue IV fluids at 75 cc/hour -start tamsulosin 0.4 mg q.d. -continue IV ceftriaxone -[place] for pain modulation -ordered to strain urine for stone passage -consulted Urology, which recommended expulsive measures and follow-up as an outpatient. Acute right nephrolithiasis with mild right hydronephrosis and hydroureter -CT scan of the abdomen showed mild right hydronephrosis and hydroureter due to a 5-6 mm distal right ureteral calculus near the right ureterovesical junction -continue IV fluids at 75 cc/hour -start tamsulosin 0.4 mg q.d. -ordered to strain urine for stone passage Right adnexal mass likely simple ovarian cyst -there is a 3.1 hypodense mass in the right adnexa likely right ovarian cyst -follow-up with OBGYN as an outpatient Hypokalemia, resolved -Potassium was repleated Goals of care discussed with the patient at bedside for >23min, FULL CODE Plan discussed with Dr. Parra Plan discussed with: Patient My Orders My Orders Orders - HAYDEN KONG Procedure Category Date Status Time Tamsulosin PHA 09/15/24 In Process Hydrochloride (Flomax) 18:00 Ceftriaxone 1gm/50ml PHA 09/16/24 In Process D5w (Rocephin) 01:00 HAYDEN KONG Sep 15, 2024 15:31
[2024-09-15] MEDS: TAMSULOSIN HYDROCHLORIDE 0.4 MG CAP PO SCH (17:33)
[2024-09-15 20:00] VITALS: PULSE 79; RESP 17; O2SAT 97
[2024-09-15 21:00] VITALS: BP 102/68; PULSE 79; RESP 17; TEMP 97.4; O2SAT 97
[2024-09-16 01:00] VITALS: BP 107/68; PULSE 78; RESP 18; TEMP 98; O2SAT 96
[2024-09-16] MEDS: cefTRIAXone 1GM/50ML D5W 50 ML IV SCH (01:02)
[2024-09-16 05:00] VITALS: BP 97/63; PULSE 86; RESP 16; TEMP 97.7; O2SAT 96
[2024-09-16 07:05] LABS: Basophils # (auto) 0.1 10 ^3/uL (0-0.2); Basophils % (auto) 0.5 % (0.0-2.0); Eosinophils # (auto) 0.3 10 ^3/uL (0-0.8); Eosinophils % (auto) 3.2 % (0.0-7.0); Hematocrit 36.1 % (36.0-46.0); Hemoglobin 12.7 g/dL (12.2-16.2); Lymphocytes # (auto) 1.4 10 ^3/uL (0.4-5.4); Lymphocytes % (auto) 14.1 % (10.0-50.0); Mean Corpuscular Hemoglobin 31.2 pg (28.0-32.0); Mean Corpuscular Hgb Conc. 35.3 g/dL (32.0-36.0); Mean Corpuscular Volume 88.5 fL (80.0-100.0); Monocytes # (auto) 0.9 10 ^3/uL (0-1.3); Neutrophils % (auto) 73.2 % (37.0-80.0); Platelet Count (auto) 387 10^3/uL (140-450); Red Blood Cells 4.08 10^6/uL (4.0-5.20); Red Cell Distribution Width 12.9 % (11.8-14.3); White Blood Cell 9.6 10^3/uL (4.4-10.8)
[2024-09-16 07:17] LABS: Chloride 108 mmol/L (98-107); Potassium 3.5 mmol/L (3.5-5.1); Sodium 139 mmol/L (136-145)
[2024-09-16 07:18] LABS: Anion Gap 11 (5-15); Carbon Dioxide 20 mmol/L (20-31)
[2024-09-16 07:19] LABS: Calcium 9.4 mg/dL (8.7-10.4)
[2024-09-16 07:23] LABS: BUN/Creatinine Ratio 10.3 (10.0-20.0); Blood Urea Nitrogen 8 mg/dL (9-23); Glucose 79 mg/dL (74-106)
[2024-09-16 08:00] VITALS: PULSE 88; RESP 17; O2SAT 95
[2024-09-16 09:06] VITALS: BP 104/62; PULSE 88; RESP 17; TEMP 98.7; O2SAT 95
--- NOTE | 2024-09-16 10:27 | DVHDSRES ---
Discharge Summary Date of Admission Resident Creating Document: ANNETTE SANTIAGO Sep 14, 2024 at 21:10 Date of Discharge: Sep 16, 2024 Admitting Diagnosis Abdominal pain Labs/Diagnostic Data: Laboratory Results Test 09/16/24 06:38 09/15/24 05:24 09/14/24 19:57 09/14/24 19:51 White Blood Count 9.6 10^3/uL (4.4-10.8) Red Blood Count 4.08 10^6/uL (4.0-5.20) Hemoglobin 12.7 g/dL (12.2-16.2) Hematocrit 36.1 % (36.0-46.0) Mean Corpuscular Volume 88.5 fL (80.0-100.0) Mean Corpuscular Hemoglobin 31.2 pg (28.0-32.0) Mean Corpuscular Hemoglobin Concent 35.3 g/dL (32.0-36.0) Red Cell Distribution Width 12.9 % (11.8-14.3) Platelet Count 387 10^3/uL (140-450) Mean Platelet Volume 6.8 fL (6.9-10.8) Neutrophils (%) (Auto) 73.2 % (37.0-80.0) Lymphocytes (%) (Auto) 14.1 % (10.0-50.0) Monocytes (%) (Auto) 9.0 % (0.0-12.0) Eosinophils (%) (Auto) 3.2 % (0.0-7.0) Basophils (%) (Auto) 0.5 % (0.0-2.0) Neutrophils # (Auto) 7.0 10 ^3/uL (1.6-8.6) Lymphocytes # (Auto) 1.4 10 ^3/uL (0.4-5.4) Monocytes # (Auto) 0.9 10 ^3/uL (0-1.3) Eosinophils # (Auto) 0.3 10 ^3/uL (0-0.8) Basophils # (Auto) 0.1 10 ^3/uL (0-0.2) Nucleated Red Blood Cells 0.0 % Sodium Level 139 mmol/L (136-145) Potassium Level 3.5 mmol/L (3.5-5.1) Chloride Level 108 mmol/L (98-107) Carbon Dioxide Level 20 mmol/L (20-31) Anion Gap 11 (5-15) Blood Urea Nitrogen 8 mg/dL (9-23) Creatinine 0.78 mg/dL (0.550-1.02) Glomerular Filtration Rate Calc 111 mL/min (>90) BUN/Creatinine Ratio 10.3 (10.0-20.0) Serum Glucose 79 mg/dL (74-106) Calcium Level 9.4 mg/dL (8.7-10.4) Total Bilirubin 1.0 mg/dL (0.2-1.0) Aspartate Amino Transferase (AST) 11 U/L (13-40) Alanine Aminotransferase (ALT) 16 U/L (7-40) Alkaline Phosphatase 72 U/L (46-116) Total Protein 6.5 g/dL (5.7-8.2) Albumin 4.0 g/dL (3.2-4.8) Urine Color Light-yellow (Yellow) Urine Clarity Clear (Clear) Urine pH 6.0 (5.0-9.0) Urine Specific [place] 1.026 (1.001-1.035) Urine Protein Negative (Negative) Urine Ketones 1+ (Negative) Urine Blood 1+ /uL (Negative) Urine Nitrite Negative (Negative) Urine Bilirubin Negative (Negative) Urine Urobilinogen Normal mg/dL (Negative) Urine Leukocyte Esterase Negative /uL (Negative) Urine RBC 26 /hpf (0 - 4) Urine WBC 2 /hpf (0 - 5) Urine Squamous Epithelial Cells Few /hpf (<5) Urine Bacteria Few /hpf (None Seen) Urine Mucus Few (None Seen) Urine Glucose Normal mg/dL (Normal) Lipase 40 U/L (12-53) Test 09/14/24 19:36 POC Glucose 95 mg/dl (70-106) Other Laboratory Tests 09/16/24 06:38 Brief Hx & Hospital Course: This is a 19 yrs old female with no significant past medical history presented to the ED for a chief complaint of abdominal pain associated with nausea and vomiting for 4 days prior to this admission. According to the patient she first felt pain in both ribcage and later it was confined to the right lower abdomen which is colicky in nature, constant 10/10 and associated with nausea and vomiting and without any aggravating factors and not relieved by taking Tylenol. She also mentioned has same symptoms 1 month ago but never sought any medical attention due to pain subsiding by its own. She denies fever, chest pain, dizziness, chills, malaise, dysuria, blood in urine or any changes in the bowel movement. Initial labs were showing leukocytosis at 11.6 rest of labs were grossly unremarkable. Lipase was 40, urinalysis came back negative for UTI. Initial gallbladder ultrasound showed no evidence of cholelithiasis or cholecystitis at that time. It showed mild right hydronephrosis. CT of the abdomen showed mild right hydronephrosis and hydroureter due to 5-6 mm distal right ureteral calculus near the right ureterovesical junction. There is also a punctuated nonobstructing calculus in the left kidney. There was also a 3.1 hypodense mass in the right adnexa likely in the right ovary which could be due to a simple cyst. The patient was started on IV fluids at 75 cc/hour, tamsulosin 0.4 mg q.d. and IV ceftriaxone. Patient is also receiving pain medication for pain modulation. Patient was admitted for further assessment and management. During hospitalization patient was treated conservatively. Patient was treated with IV fluids/Flomax, IV ceftriaxone to avoid infection or sepsis. Patient was also followed by Urology. Patient reported passing multiple stone last night and also some small stone today morning. Patient reported feeling pain free. Patient was making good urine and patient's vitals were stable. Patient denied any fever or pain before discharge. Patient is being discharged home with a any medications. Patient was advised to follow up with the primary care physician in 1 week and also to follow up with the Gynecology and Obstetrics for Right adnexal mass likely simple ovarian cyst. Patient verbalized understanding. Patient was hemodynamically stable on discharge. ROS Constitutional: Denies weight loss, fever and chills. HEENT: Denies changes in vision and hearing. Respiratory: Denies shortness of breath and cough Cardiovascular: Denies chest discomfort or palpitations GI: Reports right lower quadrant abdominal pain and right flank pain. Denies nausea, vomiting or diarrhea. : Denies dysuria and urinary frequency. Musculoskeletal: Denies myalgias and joint pain Skin: Denies rash and pruritus. Neurological: Denies dizziness, headache, vision or hearing problems Physical Examination General: Patient alert and oriented in person, place and time. Patient following commands. HEENT: Normocephalic, atraumatic, moist mucous membranes Respiratory/pulmonary: Clear lungs bilaterally, no associated crackles or wheezes. Cardiovascular: Normal regular heart sounds S1 and S2 with no associated murmurs Abdomen: Abdomen nondistended,, NONTENDER, no palpable masses. Extremities: There is no peripheral edema present at the lower extremities. Peripheral Pulses: 3+ Radial (R). 3+ Radial (L). 3+ Dorsalis pedis (R). 3+ Dorsalis pedis(L) Skin: No rashes or pruritus, there is no sacral edema present at this time. 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 Patient was counseled about treatment plan, medications, possible side effects, patientverbalized understanding. All questions were answered to the best of my ability. This discharge took greater then 30 minutes in planning, reviewing documentation, counseling the patient, and discussing with other team members." ASSESSMENT ASSESSMENT Assessment Date of Service: Sep 16, 2024 Billing Provider: GABI JI MD Common Visit Codes: 46572-XKX/OBS DISCH DAY <30MIN ANNETTE SANTIAGO Sep 16, 2024 10:27 GABI JI MD Sep 16, 2024 14:41
[2024-09-16 13:29] VITALS: BP 111/77; PULSE 102; RESP 16; TEMP 98.9; O2SAT 96
[2024-09-16 15:02] VITALS: BP 111/77; PULSE 102; RESP 16; TEMP 98.9; O2SAT 96
[2024-09-17 08:57] LABS: Hepatitis B Surface Antigen Negative (Negative)
[2024-09-17 09:19] LABS: Hepatitis C Antibody Negative (Negative)
== END 2024-09-16 16:00 | disposition home or self-care (01) | DRG 465 ==
LOC: ER 19:07 → OVERFLOW 21:10 → EAST 21:12
PROVIDERS: ATTEND Internal Medicine
DX: N13.2 Hydronephrosis with renal and ureteral calculous obstruction (principal); D72.829 Elevated white blood cell count, unspecified; E87.6 Hypokalemia; N83.201 Unspecified ovarian cyst, right side; I10 Essential (primary) hypertension; Z79.899 Other long term (current) drug therapy
CPT/HCPCS: 36415; 74176; 76705; 80048; 80053; 81001; 82962; 83690; 85025; 86803; 87340; G0378; J2405; J2470